=== PATIENT | female | born 1995 | race Caucasian/White ===

== ENCOUNTER 2021-01-07 12:02 | Emergency (ER) | payer OTHER ==
[~2021-01-07] VITALS: Ht 177.8 cm; Wt 109.1 kg
[2021-01-07 12:34] VITALS: TEMP 99
[2021-01-07] MEDS ORDERED: CATAPRES0.2 MG PO (12:38)
[2021-01-07] MEDS ORDERED: EFFEXOR-XR150 MG PO (12:39)
[2021-01-07 16:48] VITALS: BP 153/93; PULSE 93
== END 2021-01-07 16:51 | disposition home or self-care (01) ==
LOC: COL.ER 12:02
DX: R51.9 Headache, unspecified (principal); F41.9 Anxiety disorder, unspecified; F32.9 Major depressive disorder, single episode, unspecified; G47.00 Insomnia, unspecified; Z79.899 Other long term (current) drug therapy
CPT/HCPCS: J1885